=== PATIENT | male | born 1960 | race Caucasian/White ===

== ENCOUNTER 2024-05-29 10:52 | Inpatient (IN) | payer MEDICAID ==
[~2024-05-29] VITALS: Ht 172.7 cm; Wt 81.6 kg
[2024-05-29 13:56] LABS: COVID AG,FIA SOURCE NASAL SWAB
[2024-05-29 14:00] LABS: HEMATOCRIT 48.8 % (41-53); MEAN CORPUSCULAR HEMOGLOBIN 32.7 pg (26.0-34.0); MEAN CORPUSCULAR HGB CONC 32.8 G/dL (31.0-37.0); MEAN CORPUSCULAR VOLUME 100 fL (80-100); PLATELET COUNT (AUTO) 294 K/uL (150-450); RED BLOOD CELL COUNT(AUTO) 4.89 MIL/uL (4.50-5.90)
[2024-05-29 14:16] LABS: ANION GAP 9 mmol/L (8-16); CALCIUM, TOTAL 9.6 mg/dL (8.8-10.5); CARBON DIOXIDE 29 mmol/L (22-29); CHLORIDE 108 mmol/L (98-107); CREATININE 0.88 mg/dL (0.60-1.30); GLOMERULAR FILTR. RATE CALC > 60 mL/min (>60); GLUCOSE,RANDOM 90 mg/dL (70-110); SODIUM SERUM 146 mmol/L (136-145); UREA NITROGEN, BLOOD 15 mg/dL (7-18)
[2024-05-29 14:20] LABS: ALCOHOL, BLOOD (SERUM) < 3 mg/dL (0-10)
[2024-05-29] MEDS: TraZODone HCL 50 MG TABLET PO ONE (14:25)
[2024-05-29] MEDS ORDERED: DONE-51 PO (14:25)
[2024-05-29] MEDS ORDERED: OMEP40CA21 PO (14:25)
[2024-05-29] MEDS ORDERED: OLAN10TA74 PO (14:25)
[2024-05-29] MEDS ORDERED: FAMO40TA7 PO (14:25)
[2024-05-29] MEDS ORDERED: PROP10TA72 PO (14:25)
[2024-05-29] MEDS ORDERED: ZOLP-162 PO (14:25)
[2024-05-29] MEDS ORDERED: AMLO10TA55 PO (14:25)
[2024-05-29] MEDS ORDERED: SERT-439 PO (14:25)
[2024-05-29] MEDS ORDERED: TRAZ-186 PO (14:25)
[2024-05-29] MEDS ORDERED: DIVA-153 PO (14:25)
[2024-05-29] MEDS ORDERED: LOSA-381 PO (14:25)
[2024-05-29 14:26] LABS: ALCOHOL, URINE DRUG SCREEN NEGATIVE (NEGATIVE); AMPHET/METH SCREEN,URINE NEGATIVE (NEGATIVE); BARBITURATE SCREEN, URINE NEGATIVE (NEGATIVE); BENZODIAZEPINES SCREEN,URINE NEGATIVE (NEGATIVE); CANNABINOID SCREEN,URINE NEGATIVE (NEGATIVE); COCAINE SCREEN,URINE NEGATIVE (NEGATIVE); METHADONE SCREEN, URINE NEGATIVE (NEGATIVE); OPIATE SCREEN,URINE NEGATIVE (NEGATIVE); PHENCYCLIDINE SCREEN,URINE NEGATIVE (NEGATIVE)
[2024-05-29 14:32] LABS: BAND NEUTROPHILS % (MANUAL) 0 % (0-5)
[2024-05-29] MEDS: SERTRALINE HCL 100 MG TABLET PO ONE (14:32)
[2024-05-29 14:33] LABS: BASOPHILS % (MANUAL) 1 % (0-2); EOSINOPHILS % (MANUAL) 2 % (1-6); LYMPHOCYTES % (MANUAL) 18 % (22-44); MONOCYTES % (MANUAL) 18 % (2-9); SEGMENTED NEUTROPHILS % 61 % (40-70); TOTAL CELLS COUNTED 100
[2024-05-29 14:42] LABS: SARS-COV2 (COVID) ANTIGEN,FIA Negative (Negative)
[2024-05-29] MEDS ORDERED: DEXL30CA9 PO (14:57)
[2024-05-29] MEDS ORDERED: SENN-374 PO (14:57)
[2024-05-29] MEDS ORDERED: CITA30CA PO (14:57)
[2024-05-29] MEDS ORDERED: LIDO700A30 TP (14:57)
[2024-05-29] MEDS ORDERED: PANT40TA54 PO (14:57)
[2024-05-29] MEDS ORDERED: MIRT-92 PO (14:57)
[2024-05-29] MEDS ORDERED: PROP20TA96 PO (14:57)
[2024-05-29] MEDS ORDERED: DOCU-412 PO (14:57)
[2024-05-29] MEDS ORDERED: SERT-438 PO (14:57)
[2024-05-29] MEDS ORDERED: MAG HYDROX/ALUMINUM HYD/SIMETH ES 30 ML SUSPENSION UDCUP PO PRN (15:30)
[2024-05-29] MEDS ORDERED: LOPERAMIDE HCL 2 MG CAPSULE PO PRN (15:30)
[2024-05-29] MEDS ORDERED: GuaiFENesin/D-METHORPHAN [SUGAR-FREE] 200-20MG/10 ML SYRUP UDCUP PO PRN (15:30)
[2024-05-29] MEDS ORDERED: PROMETHAZINE HCL 25 MG TABLET PO PRN (15:30)
[2024-05-29] MEDS ORDERED: TUBERCULIN, PURIFIED PROTEIN DERIVATIVE 5 TU/0.1 ML SYRINGE ID ONE (15:30)
[2024-05-29] MEDS ORDERED: SENNOSIDES 8.6 MG TABLET PO PRN (16:00)
[2024-05-29] MEDS: LORazepam 1 MG TABLET PO PRN (18:49)
[2024-05-29] MEDS: OLANZapine 5 MG RAPDIS TABLET PO PRN (18:50)
[2024-05-29] MEDS: MELATONIN 5 MG TABLET PO SCH (23:30)
[2024-05-29] MEDS: MIRTAZAPINE 15 MG TABLET PO SCH (23:30)
[2024-05-29] MEDS: THIAMINE 100 MG TABLET PO SCH (23:30)
[2024-05-30] MEDS: ZOLPIDEM TARTRATE 10 MG TABLET PO PRN (00:09)
[2024-05-30] MEDS: OLANZapine 10 MG RAPDIS TABLET PO SCH (00:11)
[2024-05-30] MEDS: ACETAMINOPHEN 325 MG TABLET PO PRN (00:12)
[2024-05-30 01:29] VITALS: BP 129/83; PULSE 75; RESP 18; TEMP 97.6; O2SAT 98
[2024-05-30] MEDS ORDERED: OMEPRAZOLE 20 MG CAPSULE PO SCH (06:30)
[2024-05-30] MEDS: OMEPRAZOLE 20 MG CAPSULE PO SCH (06:39)
[2024-05-30 08:08] VITALS: BP 123/70; PULSE 70; RESP 16; TEMP 98.2; O2SAT 98
[2024-05-30] MEDS: AmLODIPine BESYLATE 10 MG TABLET PO SCH (08:38)
[2024-05-30] MEDS: LOSARTAN POTASSIUM 25 MG TABLET PO SCH (08:38)
[2024-05-30] MEDS: DONEPEZIL HCL 10 MG TABLET PO SCH (08:38)
[2024-05-30] MEDS: DOCUSATE SODIUM 250 MG CAPSULE PO SCH (08:38)
[2024-05-30] MEDS: FUROSEMIDE 20 MG TABLET PO SCH (08:38)
[2024-05-30] MEDS: MULTIVITAMINS WITH MINERALS, THERAPEUTIC TABLET PO SCH (08:38)
[2024-05-30] MEDS: OMEGA-3/DHA/EPA/FISH OIL 1,000 MG CAPSULE PO SCH (08:39)
[2024-05-30] MEDS: NALTREXONE HCL 50 MG TABLET PO SCH (08:39)
[2024-05-30] MEDS: FOLIC ACID 1 MG TABLET PO SCH (08:39)
[2024-05-30 09:13] LABS: HEMOGLOBIN A1C 4.9 % (3.8-5.6)
[2024-05-30 09:22] LABS: FREE T4 (FREE THYROXINE) 1.39 ng/dL (0.76-1.46); THYROID STIMULATING HORMONE 1.41 uIU/mL (0.36-3.74)
[2024-05-30 13:44] VITALS: BP 128/72; PULSE 68; RESP 17; TEMP 98; O2SAT 98
[2024-05-30] MEDS: ClonazePAM 0.5 MG TABLET PO SCH (17:28)
[2024-05-30] MEDS: OXcarbazepine 300 MG TABLET PO SCH (17:29)
[2024-05-30] MEDS: MIRTAZAPINE 15 MG TABLET PO SCH (17:29)
[2024-05-30] MEDS: PROPRANOLOL HCL 10 MG TABLET PO SCH (17:30)
[2024-05-30 20:19] VITALS: BP 124/76; PULSE 69; RESP 18; TEMP 97.5; O2SAT 99
[2024-05-30] MEDS: BREXPIPRAZOLE 0.25 MG TABLET PO SCH (21:05)
[2024-05-31 08:07] VITALS: BP 123/73; PULSE 63; RESP 16; TEMP 98.1; O2SAT 96
[2024-05-31] MEDS: PROPRANOLOL HCL 10 MG TABLET PO SCH (17:02)
[2024-05-31 18:04] VITALS: RESP 17
[2024-05-31 20:16] VITALS: BP 117/74; PULSE 70; RESP 18; TEMP 97.4; O2SAT 98
[2024-05-31] MEDS: MIRTAZAPINE 15 MG TABLET PO SCH (20:55)
[2024-06-01 04:45] VITALS: BP 137/93; PULSE 75; RESP 19; TEMP 97.4; O2SAT 97
[2024-06-01 08:21] VITALS: BP 119/60; PULSE 66; RESP 18; TEMP 97.3; O2SAT 96
[2024-06-01 12:30] VITALS: BP 117/80; PULSE 74; RESP 18; TEMP 97.5; O2SAT 97
[2024-06-01] MEDS ORDERED: LOPERAMIDE HCL 2 MG CAPSULE PO PRN (15:30)
[2024-06-01] MEDS: ClonazePAM 0.5 MG TABLET PO SCH (17:26)
[2024-06-01] MEDS: PROPRANOLOL HCL 10 MG TABLET PO SCH (17:35)
[2024-06-01 20:22] VITALS: BP 124/85; PULSE 70; RESP 18; TEMP 97.3; O2SAT 99
[2024-06-01] MEDS: MIRTAZAPINE 30 MG TABLET PO SCH (20:45)
[2024-06-02] MEDS: HydrOXYzine PAMOATE 50 MG CAPSULE PO PRN (01:13)
[2024-06-02 05:23] VITALS: RESP 18
[2024-06-02 06:17] VITALS: RESP 18
[2024-06-02 08:18] VITALS: BP 127/86; PULSE 74; RESP 18; TEMP 97.3; O2SAT 98
[2024-06-02] MEDS: PROPRANOLOL HCL 10 MG TABLET PO SCH (17:56)
[2024-06-02] MEDS: ClonazePAM 1 MG TABLET PO SCH (17:56)
[2024-06-02 20:08] VITALS: BP 138/86; PULSE 69; RESP 17; TEMP 97.1; O2SAT 100
[2024-06-02 20:54] VITALS: RESP 17
[2024-06-03 01:02] VITALS: RESP 17
[2024-06-03 05:48] VITALS: RESP 17
[2024-06-03 09:37] VITALS: BP 130/83; PULSE 74; RESP 17; TEMP 97.5; O2SAT 95
[2024-06-03] MEDS: BREXPIPRAZOLE 0.25 MG TABLET PO PRN (17:28)
[2024-06-03 20:14] VITALS: BP 115/79; PULSE 75; RESP 18; TEMP 97.3; O2SAT 97
[2024-06-03] MEDS: TraZODone HCL 100 MG TABLET PO SCH (20:43)
[2024-06-03] MEDS: MELATONIN 5 MG TABLET PO SCH (20:44)
[2024-06-03] MEDS: MIRTAZAPINE 15 MG TABLET PO SCH (20:45)
[2024-06-03 22:23] VITALS: RESP 18
[2024-06-03 23:52] VITALS: RESP 18
[2024-06-04] VITALS (12 sets, daily range): BP systolic 110–148; BP diastolic 72–91; PULSE 64–116; RESP 17–18; TEMP 96.9–98; O2SAT 97–99
[2024-06-04] MEDS: MEMANTINE HCL 5 MG TABLET PO SCH (09:04)
[2024-06-04] MEDS ORDERED: ZOLPIDEM TARTRATE 5 MG TABLET PO PRN (23:00)
[2024-06-04] MEDS: TEMAZEPAM 15 MG CAPSULE PO PRN (23:35)
[2024-06-05 08:22] VITALS: BP 111/75; PULSE 96; RESP 18; TEMP 97.2; O2SAT 95
[2024-06-05 12:35] VITALS: BP 124/61; PULSE 98; RESP 18; TEMP 97.5; O2SAT 96
[2024-06-05 16:08] VITALS: BP 119/75; PULSE 80; TEMP 97.6; O2SAT 98
[2024-06-05 20:09] VITALS: BP 119/82; PULSE 93; RESP 18; TEMP 98.7
[2024-06-05] MEDS: MIRTAZAPINE 15 MG TABLET PO SCH (20:28)
[2024-06-05] MEDS: TraZODone HCL 150 MG TABLET PO SCH (20:29)
[2024-06-05] MEDS: -LIDODERM PATCH NOTE- MISC SCH (21:00)
[2024-06-06 08:32] VITALS: BP 124/79; PULSE 81; RESP 16; TEMP 98.4; O2SAT 96
[2024-06-06] MEDS: PROPRANOLOL HCL 40 MG TABLET PO SCH (08:32)
[2024-06-06] MEDS: LIDOCAINE 5% TRANSDERMAL PATCH TD SCH (09:03)
[2024-06-06 17:32] VITALS: BP 121/77; PULSE 69; RESP 20; TEMP 98; O2SAT 100
[2024-06-06 20:14] VITALS: BP 120/78; PULSE 88; RESP 18; TEMP 97.1; O2SAT 97
[2024-06-06] MEDS: ZOLPIDEM TARTRATE 10 MG TABLET PO PRN (22:33)
[2024-06-06 23:10] VITALS: BP 118/82; PULSE 82; RESP 19; TEMP 97.6; O2SAT 98
[2024-06-07 00:16] VITALS: RESP 18
[2024-06-07 07:56] VITALS: BP 120/83; PULSE 68; RESP 17; TEMP 97; O2SAT 96
[2024-06-07 08:27] VITALS: BP 120/83; PULSE 68; RESP 17; TEMP 97; O2SAT 96
[2024-06-07 12:19] VITALS: BP 124/79; PULSE 69; RESP 18; TEMP 97.3; O2SAT 96
[2024-06-07] MEDS ORDERED: GABAPENTIN 300 MG CAPSULE PO PRN (17:45)
[2024-06-07] MEDS: GABAPENTIN 300 MG CAPSULE PO SCH (20:49)
[2024-06-07] MEDS: MIRTAZAPINE 30 MG TABLET PO SCH (20:50)
[2024-06-07 21:57] VITALS: BP 112/74; PULSE 70; RESP 18; TEMP 97.5; O2SAT 95
[2024-06-08] MEDS: METHYL SALICYLATE/MENTHOL 85 GM CREAM TP PRN (02:37)
[2024-06-08] MEDS: DULoxetine HCL 20 MG CAPSULE PO SCH (08:06)
[2024-06-08] MEDS: ClonazePAM 0.5 MG TABLET PO SCH (08:07)
[2024-06-08 08:37] VITALS: BP 123/83; PULSE 69; RESP 18; TEMP 96.3; O2SAT 98
[2024-06-08 16:30] VITALS: BP 84/63; PULSE 48; RESP 16
[2024-06-08 17:53] VITALS: BP 111/49; PULSE 78; RESP 18
[2024-06-08 20:36] VITALS: RESP 18
[2024-06-08] MEDS: MIRTAZAPINE 30 MG TABLET PO SCH (20:57)
[2024-06-08] MEDS: GABAPENTIN 400 MG CAPSULE PO SCH (20:57)
[2024-06-09 08:53] VITALS: BP 142/75; PULSE 74; RESP 19; TEMP 97.3; O2SAT 96
[2024-06-09 10:33] VITALS: BP_SYST 132; BP_SYST 142; PULSE 74; PULSE 75; RESP 17; TEMP 97.3; TEMP 97.6
[2024-06-09] MEDS: DULoxetine HCL 30 MG CAPSULE PO SCH (10:36)
[2024-06-09 11:33] VITALS: BP 136/71; RESP 17; TEMP 98
[2024-06-09] MEDS ORDERED: MELOXICAM 7.5 MG TABLET PO PRN (17:00)
[2024-06-09] MEDS: GABAPENTIN 300 MG CAPSULE PO SCH (17:04)
[2024-06-09 20:29] VITALS: BP 90/60; PULSE 64; RESP 18; TEMP 97; O2SAT 97
[2024-06-10] MEDS: DULoxetine HCL 20 MG CAPSULE PO SCH (10:16)
[2024-06-10] MEDS: CYCLOBENZAPRINE HCL 10 MG TABLET PO PRN (10:23)
[2024-06-10 10:32] VITALS: BP 115/72; PULSE 86; RESP 18; RESP 19; TEMP 97.6; O2SAT 94
[2024-06-10 20:35] VITALS: BP 119/77; PULSE 81; RESP 18; TEMP 97.7; O2SAT 95
[2024-06-11 08:56] VITALS: BP 101/70; PULSE 64; RESP 18; TEMP 97.4; O2SAT 95
[2024-06-11 21:08] VITALS: TEMP 97
[2024-06-12 08:15] VITALS: BP 120/81; PULSE 70; RESP 18; TEMP 97.6; O2SAT 95
[2024-06-12] MEDS: GABAPENTIN 400 MG CAPSULE PO SCH (13:36)
[2024-06-12] MEDS: CYCLOBENZAPRINE HCL 10 MG TABLET PO SCH (13:38)
[2024-06-12] MEDS: MELOXICAM 7.5 MG TABLET PO SCH (18:17)
[2024-06-12 21:10] VITALS: RESP 18
[2024-06-13] MEDS: MELOXICAM 7.5 MG TABLET PO SCH (06:37)
[2024-06-13] MEDS: DULoxetine HCL 60 MG CAPSULE PO SCH (08:06)
[2024-06-13 09:14] VITALS: BP 114/73; PULSE 57; RESP 18; TEMP 97.7; O2SAT 98
[2024-06-13 12:39] VITALS: BP 102/69; PULSE 57; RESP 18
[2024-06-13 17:19] VITALS: BP 105/63; PULSE 59; RESP 17
[2024-06-13 20:28] VITALS: RESP 18
[2024-06-14 09:22] VITALS: BP 134/80; PULSE 80; RESP 17; TEMP 97.5; O2SAT 96
[2024-06-14] MEDS: ClonazePAM 0.5 MG TABLET PO SCH (10:46)
[2024-06-14] MEDS ORDERED: PROP40TA7 PO (14:22)
[2024-06-14] MEDS ORDERED: OXCA300T28 PO (14:22)
[2024-06-14] MEDS ORDERED: TRAZ-257 PO (14:22)
[2024-06-14] MEDS ORDERED: MEMA5TAB41 PO (14:22)
[2024-06-14] MEDS ORDERED: CLON-592 PO (14:22)
[2024-06-14] MEDS ORDERED: MELA5TAB40 PO (14:22)
[2024-06-14] MEDS ORDERED: DONE-51 PO (14:22)
[2024-06-14] MEDS ORDERED: GABA-1201 PO (14:22)
[2024-06-14] MEDS ORDERED: OMEG100033 PO (14:22)
[2024-06-14] MEDS ORDERED: NALT50TA33 PO (14:22)
[2024-06-14] MEDS ORDERED: MIRT-149 PO (14:22)
[2024-06-14] MEDS ORDERED: DULO-113 PO (14:22)
[2024-06-14] MEDS: TraZODone HCL 100 MG TABLET PO SCH (21:29)
[2024-06-14 22:26] VITALS: BP 118/69; PULSE 60; RESP 16; TEMP 97.7; O2SAT 97
[2024-06-15 11:03] VITALS: BP 117/74; PULSE 56; RESP 18; TEMP 97.7; O2SAT 99
[2024-06-15 11:30] VITALS: BP 105/65; PULSE 88; RESP 18; O2SAT 98
[2024-06-15 12:44] VITALS: BP 109/55; PULSE 55; RESP 18
[2024-06-15] MEDS: MAGNESIUM HYDROXIDE SUSPENSION 30 ML UDCUP PO PRN (12:50)
[2024-06-15 16:12] VITALS: BP 125/69; PULSE 65; RESP 20; O2SAT 96
[2024-06-15 21:02] VITALS: BP 110/62; PULSE 89; RESP 18; TEMP 97.5; O2SAT 97
[2024-06-16 09:42] VITALS: BP 137/91; PULSE 77; RESP 18; TEMP 97.5; O2SAT 96
[2024-06-16 12:41] VITALS: BP 114/64; PULSE 65; RESP 18; O2SAT 97
== END 2024-06-16 15:58 | disposition home or self-care (01) | DRG 753 ==
LOC: EMS 10:59 → B3A 20:49 → 3EC 06-06 14:01 → 3EI 06-09 13:26 → 3EC 06-09 14:34 → 3EI 06-09 15:01 → 3EC 06-09 16:24 → 3EI 06-14 02:04
PROVIDERS: ADMIT Psychiatry & Neurology Psychiatry; ATTEND Psychiatry & Neurology Psychiatry
PROC: GZHZZZZ Group Psychotherapy (ICD-10-PCS; principal; 2024-05-30)
PROC: GZ58ZZZ Individual Psychotherapy, Cognitive-Behavioral (ICD-10-PCS; 2024-05-30)
DX: F31.4 Bipolar disorder, current episode depressed, severe, without psychotic features (principal); F02.811 Dementia in other diseases classified elsewhere, unspecified severity, with agitation; G20.A1 Parkinson's disease without dyskinesia, without mention of fluctuations; R45.851 Suicidal ideations; F02.818 Dementia in other diseases classified elsewhere, unspecified severity, with other behavioral disturbance; F17.200 Nicotine dependence, unspecified, uncomplicated; G47.00 Insomnia, unspecified; G89.29 Other chronic pain; Z20.822 Contact with and (suspected) exposure to COVID-19; I10 Essential (primary) hypertension; J44.9 Chronic obstructive pulmonary disease, unspecified; K21.9 Gastro-esophageal reflux disease without esophagitis; K59.00 Constipation, unspecified; M47.816 Spondylosis without myelopathy or radiculopathy, lumbar region; M47.814 Spondylosis without myelopathy or radiculopathy, thoracic region; Z81.8 Family history of other mental and behavioral disorders; Z88.6 Allergy status to analgesic agent; Z91.148 Patient's other noncompliance with medication regimen for other reason; M48.061 Spinal stenosis, lumbar region without neurogenic claudication; M48.56XA Collapsed vertebra, not elsewhere classified, lumbar region, initial encounter for fracture; X78.9XXA Intentional self-harm by unspecified sharp object, initial encounter; S61.519A Laceration without foreign body of unspecified wrist, initial encounter
CPT/HCPCS: 72072; 72100; 72146; 72148; 80048; 80061; 80307; 83036; 84439; 84443; 85025; 86592; 87081; 87481; 99285; G0480

== ENCOUNTER 2024-06-04 02:52 | Emergency (ER) | payer MEDICAID ==
[~2024-06-04] VITALS: Ht 172.7 cm; Wt 80.0 kg
[~2024-06-04 02:52] MED LIST: AMLO10TA55 PO; DIVA-153 PO; DOCU-412 PO; DONE-51 PO; FAMO40TA7 PO; LIDO700A30 TP; LOSA-381 PO; MIRT-92 PO; OLAN10TA74 PO; OMEP40CA21 PO; PROP10TA72 PO; SENN-374 PO; SERT-439 PO; TRAZ-186 PO; ZOLP-162 PO
[2024-06-04 03:24] VITALS: BP 134/87; PULSE 59; RESP 16; TEMP 97.6; O2SAT 97
[2024-06-04] MEDS: IBUPROFEN 600 MG TABLET PO ONE (03:46)
== END 2024-06-04 08:59 | disposition admitted as inpatient to this hospital (09) ==
LOC: EMS 02:52
DX: S00.83XA Contusion of other part of head, initial encounter (principal); F31.9 Bipolar disorder, unspecified; F41.9 Anxiety disorder, unspecified; F03.93 Unspecified dementia, unspecified severity, with mood disturbance; Z87.891 Personal history of nicotine dependence; Z88.6 Allergy status to analgesic agent; W22.8XXA Striking against or struck by other objects, initial encounter; Y93.89 Activity, other specified; Y92.89 Other specified places as the place of occurrence of the external cause; Y99.8 Other external cause status
CPT/HCPCS: 70450; 72125; 99285